=== PATIENT | male | born 1995 | race Caucasian/White ===

== ENCOUNTER 2019-01-03 12:38 | Emergency (ER) | payer SELFPAY ==
[~2019-01-03] VITALS: Ht 172.7 cm; Wt 76.7 kg
[2019-01-03 12:49] VITALS: Ht 172.7 cm; Wt 76.7 kg
[2019-01-03 14:08] VITALS: BP 125/74
== END 2019-01-03 14:08 | disposition home or self-care (01) ==
LOC: ED 12:38
DX: S09.8XXA Other specified injuries of head, initial encounter (principal); Y04.8XXA Assault by other bodily force, initial encounter; Y93.89 Activity, other specified; Y92.89 Other specified places as the place of occurrence of the external cause; Y99.8 Other external cause status